=== PATIENT | female | born 1985 | race African-American/Black ===

== ENCOUNTER 2017-04-11 10:46 | Emergency (ER) | payer MEDICAID ==
[~2017-04-11] VITALS: Ht 162.6 cm; Wt 75.0 kg
[~2017-04-11 10:46] MED LIST: ALBUTEROL
[2017-04-11] MEDS ORDERED: MAGNESIUM/ALUMINUM HYDROXIDE/SIMETHICONE 30ML UDC PO STA (11:51)
[2017-04-11] MEDS ORDERED: ONDANSETRON 4MG ODT PO STA (11:51)
[2017-04-11] MEDS ORDERED: FAMOTIDINE 20MG TABLET PO ONE (12:00)
[2017-04-11 12:09] LABS: BASOPHILS % 0.2 % (0.0-2.0); EOSINOPHILS % 6.7 % (0.0-5.0); HEMATOCRIT. 37.5 % (36.0-48.0); HEMOGLOBIN. 12.8 g/dL (12.0-16.0); MEAN CORPUSCULAR HEMOGLOBIN 30.9 pg (28.0-32.0); MEAN CORPUSCULAR VOLUME 90.7 fL (81.0-99.0); MEAN PLATELET VOLUME 8.8 fl (7.4-10.4); MONOCYTES % 6.3 % (2.0-8.0); NEUTROPHILS % 38.8 % (40.0-76.0); PLATELET 216 x1000/uL (130-400); RED BLOOD CELL COUNT 4.13 mill/uL (4.2-5.4); RED CELL DISTRIBUTION WIDTH 13.9 % (11.6-14.6)
[2017-04-11 12:14] LABS: GLUCOSE URINE NEGATIVE (NEGATIVE); KETONES URINE TRACE (NEGATIVE); LEUKOCYTE ESTERASE URINE NEGATIVE (NEGATIVE); NITRITE URINE NEGATIVE (NEGATIVE); OCCULT BLOOD URINE TRACE (NEGATIVE); PH URINE 5.5 (4.5-8.0); PROTEIN URINE NEGATIVE (NEGATIVE); SPECIFIC GRAVITY URINE 1.031 (1.005-1.030); UROBILINOGEN URINE 0.2 E.U./dL (0.2-1.0)
[2017-04-11 12:15] LABS: CLARITY URINE CLEAR (CLEAR); COLOR URINE YELLOW (YELLOW)
[2017-04-11 12:23] LABS: CARBON DIOXIDE 27 mEq/L (21-32); CHLORIDE 105 mEq/L (98-107)
[2017-04-11 13:01] VITALS: BP 102/65
== END 2017-04-11 13:04 | disposition home or self-care (01) ==
LOC: ER 12:15
DX: K29.70 Gastritis, unspecified, without bleeding (principal); J45.909 Unspecified asthma, uncomplicated; Z88.6 Allergy status to analgesic agent; Z88.4 Allergy status to anesthetic agent; Z91.013 Allergy to seafood
CPT/HCPCS: 36415; 80053; 81001; 81025; 83690; 85025; 99284; Q0162

== ENCOUNTER 2017-12-07 18:57 | Emergency (ER) | payer MEDICAID ==
[~2017-12-07] VITALS: Ht 162.6 cm; Wt 76.0 kg
[2017-12-07 22:02] VITALS: BP 111/65
== END 2017-12-07 22:03 | disposition home or self-care (01) ==
LOC: ER 18:57
DX: J02.9 Acute pharyngitis, unspecified (principal)
CPT/HCPCS: 71045; 81025; 87070; 87430; 99285

== ENCOUNTER 2018-01-24 12:55 | Emergency (ER) | payer MEDICAID ==
[~2018-01-24] VITALS: Ht 157.5 cm; Wt 73.0 kg
[2018-01-24 16:17] LABS: CLARITY URINE CLEAR (CLEAR); COLOR URINE YELLOW (YELLOW); KETONES URINE NEGATIVE (NEGATIVE); LEUKOCYTE ESTERASE URINE NEGATIVE (NEGATIVE); NITRITE URINE NEGATIVE (NEGATIVE); OCCULT BLOOD URINE NEGATIVE (NEGATIVE); PROTEIN URINE NEGATIVE (NEGATIVE); SPECIFIC GRAVITY URINE 1.021 (1.005-1.030)
[2018-01-24] MEDS ORDERED: CEFTRIAXONE SODIUM 250 MG/VIAL IM ONE (19:00)
[2018-01-24] MEDS ORDERED: LIDOCAINE HCL 1% 20ML VIAL (Pyxis) INJ INFIL ONE (19:00)
[2018-01-24] MEDS ORDERED: AZITHROMYCIN 500 MG TABLET PO ONE (19:00)
[2018-01-24] MEDS ORDERED: LIDOCAINE HCL/PF 1% 10 MG/ML 5ML VIAL IJ ONE (19:45)
[2018-01-24] MEDS ORDERED: IBUPROFEN 600MG TABLET PO ONE (21:30)
[2018-01-24 22:02] VITALS: BP 115/78
== END 2018-01-24 22:04 | disposition home or self-care (01) ==
LOC: ER 15:03
DX: N76.0 Acute vaginitis (principal); B96.89 Other specified bacterial agents as the cause of diseases classified elsewhere; J45.909 Unspecified asthma, uncomplicated; Z88.6 Allergy status to analgesic agent; Z91.013 Allergy to seafood
CPT/HCPCS: 81003; 81025; 87210; 96372; 99284; J0696; J3490; Z7610

== ENCOUNTER 2018-02-17 23:08 | Emergency (ER) | payer MEDICAID ==
[~2018-02-17] VITALS: Ht 165.1 cm; Wt 61.0 kg
[2018-02-17 23:13] VITALS: BP 121/77
== END 2018-02-18 01:20 | disposition left against medical advice (07) ==
LOC: ER 23:08
DX: R07.89 Other chest pain (principal); R06.02 Shortness of breath; Z53.21 Procedure and treatment not carried out due to patient leaving prior to being seen by health care provider

== ENCOUNTER 2020-02-02 13:07 | Emergency (ER) | payer MEDICAID ==
[~2020-02-02] VITALS: Ht 162.6 cm; Wt 73.0 kg
[2020-02-02] MEDS ORDERED: KETOROLAC 30MG/ML VIAL IV STA (17:12)
[2020-02-02] MEDS ORDERED: ONDANSETRON HCL 4MG/2ML INJ IV STA (17:12)
[2020-02-02] MEDS ORDERED: SODIUM CHLORIDE 0.9% 1,000 ML IV ONE (17:12)
[2020-02-02 17:33] LABS: EOSINOPHILS % 1.6 % (0.0-5.0); HEMATOCRIT. 35.9 % (36.0-48.0); LYMPHOCYTES % 37.3 % (20.0-50.0); MEAN CORPUSCULAR HEMOGLOBIN 30.5 pg (28.0-32.0); MEAN CORPUSCULAR VOLUME 91.3 fL (81.0-99.0); MEAN PLATELET VOLUME 8.8 fl (7.4-10.4); MONOCYTES % 4.7 % (2.0-8.0); NEUTROPHILS % 55.4 % (40.0-76.0); PLATELET 279 x1000/uL (130-400); RED BLOOD CELL COUNT 3.94 mill/uL (4.2-5.4); RED CELL DISTRIBUTION WIDTH 13.5 % (11.6-14.6)
[2020-02-02 17:40] LABS: CHLORIDE 107 mEq/L (98-107)
[2020-02-02 17:41] LABS: HCG SCREEN NEGATIVE
[2020-02-02 18:27] LABS: COLOR URINE YELLOW (YELLOW); KETONES URINE NEGATIVE (NEGATIVE); LEUKOCYTE ESTERASE URINE NEGATIVE (NEGATIVE); NITRITE URINE NEGATIVE (NEGATIVE); OCCULT BLOOD URINE NEGATIVE (NEGATIVE); PH URINE 6.5 (4.5-8.0); PROTEIN URINE NEGATIVE (NEGATIVE); SPECIFIC GRAVITY URINE 1.029 (1.005-1.030)
[2020-02-02 18:30] LABS: CLARITY URINE CLEAR (CLEAR)
[2020-02-02 19:43] VITALS: BP 127/70
== END 2020-02-02 20:47 | disposition home or self-care (01) ==
LOC: ER 13:07
DX: R10.30 Lower abdominal pain, unspecified (principal); R11.2 Nausea with vomiting, unspecified; J45.909 Unspecified asthma, uncomplicated; Z91.013 Allergy to seafood; Z88.6 Allergy status to analgesic agent; Z88.8 Allergy status to other drugs, medicaments and biological substances; Z85.43 Personal history of malignant neoplasm of ovary
CPT/HCPCS: 36415; 76770; 76830; 76856; 80053; 81003; 81025; 84703; 85025; 93005; 96361; 96374; 96375; 99285; J1885; J2405; J7030

== ENCOUNTER 2020-02-21 01:02 | Emergency (ER) | payer MEDICAID ==
[~2020-02-21] VITALS: Ht 162.6 cm; Wt 70.0 kg
[2020-02-21] MEDS ORDERED: KETOROLAC 60MG/2ML VIAL IM STA (02:19)
[2020-02-21] MEDS ORDERED: AZITHROMYCIN 500 MG TABLET PO ONE (02:30)
[2020-02-21] MEDS ORDERED: CEFTRIAXONE SODIUM 250 MG/VIAL IM ONE (02:30)
[2020-02-21 02:57] LABS: CLARITY URINE CLOUDY (CLEAR); COLOR URINE YELLOW (YELLOW); KETONES URINE 4+ (NEGATIVE); LEUKOCYTE ESTERASE URINE 2+ (NEGATIVE); NITRITE URINE NEGATIVE (NEGATIVE); OCCULT BLOOD URINE 3+ (NEGATIVE); PH URINE 5.5 (4.5-8.0); PROTEIN URINE 1+ (NEGATIVE); SPECIFIC GRAVITY URINE 1.034 (1.005-1.030); UROBILINOGEN URINE 0.2 E.U./dL (0.2-1.0)
[2020-02-21 03:01] LABS: CHLORIDE 106 mEq/L (98-107)
[2020-02-21 03:06] LABS: BASOPHILS % 0.9 % (0.0-2.0); EOSINOPHILS % 0.2 % (0.0-5.0); HEMATOCRIT. 36.7 % (36.0-48.0); HEMOGLOBIN. 12.3 g/dL (12.0-16.0); LYMPHOCYTES % 23.1 % (20.0-50.0); MEAN CORPUSCULAR HEMOGLOBIN 30.3 pg (28.0-32.0); MEAN CORPUSCULAR VOLUME 90.8 fL (81.0-99.0); MEAN PLATELET VOLUME 8.8 fl (7.4-10.4); MONOCYTES % 4.9 % (2.0-8.0); NEUTROPHILS % 70.9 % (40.0-76.0); PLATELET 265 x1000/uL (130-400); RED BLOOD CELL COUNT 4.04 mill/uL (4.2-5.4); RED CELL DISTRIBUTION WIDTH 13.7 % (11.6-14.6)
[2020-02-21 04:45] VITALS: BP 114/72
== END 2020-02-21 05:13 | disposition home or self-care (01) ==
LOC: ER 01:02
DX: M54.5 Low back pain (principal); R10.9 Unspecified abdominal pain; J45.909 Unspecified asthma, uncomplicated; Z98.890 Other specified postprocedural states; Z91.013 Allergy to seafood
CPT/HCPCS: 36415; 72100; 74176; 80053; 81003; 81025; 83690; 85025; 86703; 87086; 87491; 87591; 93005; 96372; 99285; J0696; J1885

== ENCOUNTER 2021-03-21 19:32 | Emergency (ER) | payer BC, MEDICAID ==
[~2021-03-21] VITALS: Ht 162.6 cm; Wt 66.0 kg
[2021-03-21] MEDS ORDERED: SODIUM CHLORIDE 0.9% 1,000 ML IV ONE (20:30)
[2021-03-21 20:51] LABS: CLARITY URINE CLEAR (CLEAR); COLOR URINE YELLOW (YELLOW); KETONES URINE NEGATIVE (NEGATIVE); LEUKOCYTE ESTERASE URINE TRACE (NEGATIVE); NITRITE URINE NEGATIVE (NEGATIVE); OCCULT BLOOD URINE NEGATIVE (NEGATIVE); PROTEIN URINE NEGATIVE (NEGATIVE); SPECIFIC GRAVITY URINE 1.019 (1.005-1.030)
[2021-03-21 20:55] LABS: BASOPHILS % 0.4 % (0.0-2.0); EOSINOPHILS % 0.9 % (0.0-5.0); HEMATOCRIT. 35.2 % (36.0-48.0); HEMOGLOBIN. 11.9 g/dL (12.0-16.0); LYMPHOCYTES % 11.5 % (20.0-50.0); MEAN CORPUSCULAR HEMOGLOBIN 30.6 pg (28.0-32.0); MEAN CORPUSCULAR VOLUME 90.4 fL (81.0-99.0); MONOCYTES % 4.2 % (2.0-8.0); PLATELET 285 x1000/uL (130-400); RED CELL DISTRIBUTION WIDTH 14.4 % (11.6-14.6)
[2021-03-21] MEDS ORDERED: KETOROLAC 15MG/ML VIAL IV ONE (21:00)
[2021-03-21 21:01] LABS: CHLORIDE 104 mEq/L (98-107)
[2021-03-21 21:05] LABS: INR 0.9; PROTHROMBIN TIME 10.2 sec (9.6-11.0)
[2021-03-21] MEDS ORDERED: MORPHINE SULFATE 2 MG/ML CPJ (NOT FOR IM USE) IV NR (23:00)
[2021-03-22] MEDS ORDERED: CEFTRIAXONE SODIUM 500 MG/VIAL IM ONE (00:45)
[2021-03-22] MEDS ORDERED: LIDOCAINE HCL 1% 20ML VIAL (Pyxis) INJ INFIL ONE (00:45)
[2021-03-22] MEDS ORDERED: DOXYCYCLINE HYCLATE 100MG CAPSULE PO ONE (00:45)
[2021-03-22] MEDS ORDERED: IBUP-2029 MT (00:48)
[2021-03-22] MEDS ORDERED: DOXY100C5 MT (00:48)
[2021-03-22] MEDS ORDERED: ONDA4TAB5 MT (00:48)
[2021-03-22 02:00] VITALS: BP 125/81
== END 2021-03-22 02:16 | disposition home or self-care (01) ==
LOC: ER 19:32
DX: N70.91 Salpingitis, unspecified (principal); N39.0 Urinary tract infection, site not specified; K76.89 Other specified diseases of liver; N83.9 Noninflammatory disorder of ovary, fallopian tube and broad ligament, unspecified; J45.909 Unspecified asthma, uncomplicated; Z86.19 Personal history of other infectious and parasitic diseases; Z88.8 Allergy status to other drugs, medicaments and biological substances; Z91.013 Allergy to seafood
CPT/HCPCS: 36415; 76830; 76856; 80053; 81003; 81025; 83690; 85025; 85610; 87210; 87591; 96361; 96372; 96374; 96375; 99285; J0696; J1885; J2270; J3490; J7030

== ENCOUNTER 2024-09-02 20:13 | Emergency (ER) | payer SELFPAY ==
[~2024-09-02] VITALS: Ht 167.6 cm; Wt 62.6 kg
[~2024-09-02 20:13] MED LIST changes: +DOXY100C5 MT; +IBUP-2029 MT; +ONDA4TAB5 MT
[2024-09-02 20:18] VITALS: TEMP 36.9; O2SAT 99
[2024-09-02 21:36] LABS: HEMATOCRIT 34.5 % (36.0-48.0); HEMOGLOBIN 11.1 g/dL (12.0-16.0); MEAN CORPUSCULAR HEMOGLOBIN 29.6 pg (28.0-32.0); MEAN CORPUSCULAR HGB CONC 32.1 g/dL (31.0-37.0); MEAN CORPUSCULAR VOLUME 92.2 fL (81.0-99.0); PLATELET 301 x1000/uL (130-400); RED BLOOD CELL COUNT 3.74 mill/uL (4.2-5.4); RED CELL DISTRIBUTION WIDTH 14.4 % (11.6-14.6); WHITE BLOOD COUNT 6.2 x1000/uL (4.5-11.0)
[2024-09-02 21:46] LABS: CHLORIDE 104 mEq/L (98-107); POTASSIUM 3.6 mEq/L (3.5-5.1); SODIUM 140 mEq/L (136-145)
[2024-09-02 21:47] LABS: CARBON DIOXIDE 27 mEq/L (21-32)
[2024-09-02 21:52] LABS: CREATININE 0.7 mg/dL (0.6-1.0); GLUCOSE 97 mg/dL (70-105); UREA NITROGEN BLOOD 9 mg/dL (9-23)
[2024-09-02 22:41] LABS: CLARITY URINE CLOUDY (CLEAR); COLOR URINE YELLOW (YELLOW); GLUCOSE URINE NEGATIVE (NEGATIVE); KETONES URINE NEGATIVE (NEGATIVE); LEUKOCYTE ESTERASE URINE NEGATIVE (NEGATIVE); NITRITE URINE NEGATIVE (NEGATIVE); OCCULT BLOOD URINE 1+ (NEGATIVE); PROTEIN URINE NEGATIVE (NEGATIVE); SPECIFIC GRAVITY URINE 1.024 (1.005-1.030)
[2024-09-02] MEDS: ONDANSETRON 4MG ODT PO NR (22:44)
[2024-09-02] MEDS: KETOROLAC 30MG/ML VIAL IM NR (22:44)
[2024-09-02 22:48] LABS: ALANINE AMINOTRANSFERASE 27 IU/L (10-49); ALBUMIN 3.9 g/dL (3.2-4.8); ASPARTATE AMINOTRANSFERASE 19 IU/L (<34); BILIRUBIN DIRECT 0.1 mg/dL (<=3.0); BILIRUBIN TOTAL 0.4 mg/dL (0.1-1.0); PROTEIN TOTAL 6.7 g/dL (6.0-8.3)
[2024-09-02 22:57] LABS: BACTERIA URINE TRACE; SQUAMOUS EPITHELIAL CELL URINE 1+ /lpf (RARE/1+); WBC URINE 0-2 /hpf (0-2)
[2024-09-03 00:07] LABS: HCG SCREEN NEGATIVE
[2024-09-03] MEDS ORDERED: TOPUD MT (00:19)
[2024-09-03 00:32] VITALS: BP 154/98; PULSE 72; RESP 18; O2SAT 100
== END 2024-09-03 00:29 | disposition home or self-care (01) ==
LOC: ER 20:13
DX: R07.89 Other chest pain (principal); J45.909 Unspecified asthma, uncomplicated; Z79.899 Other long term (current) drug therapy; Z98.890 Other specified postprocedural states; Z88.8 Allergy status to other drugs, medicaments and biological substances; Z91.018 Allergy to other foods
CPT/HCPCS: 99285; 71045; 80076; 80048; 81003; 84703; 83690; 85027; 36415; 93005; 96372; J1885; Q0162

== ENCOUNTER 2024-10-05 07:18 | Emergency (ER) | payer SELFPAY ==
[~2024-10-05] VITALS: Ht 162.6 cm; Wt 68.0 kg
[~2024-10-05 07:18] MED LIST changes: +TOPUD MT
[2024-10-05 07:25] VITALS: BP 118/74; TEMP 36.7; O2SAT 100
[2024-10-05 08:23] VITALS: PULSE 79; RESP 16; O2SAT 99
[2024-10-05] MEDS: IPRATROPIUM BROMIDE (0.02%) 0.5MG/2.5ML NEB HHN STA (08:23)
[2024-10-05] MEDS: ALBUTEROL (0.083%) 2.5MG/3ML NEB HHN STA (08:23)
[2024-10-05] MEDS: PREDNISONE 20MG TABLET PO STA (08:47)
[2024-10-05] MEDS ORDERED: PRED10TA23 MT (10:41)
[2024-10-05] MEDS ORDERED: ALBU90AE INH (10:41)
== END 2024-10-05 10:50 | disposition home or self-care (01) ==
LOC: ER 07:18
DX: J45.901 Unspecified asthma with (acute) exacerbation (principal); R05.9 Cough, unspecified; Z20.822 Contact with and (suspected) exposure to COVID-19; Z98.890 Other specified postprocedural states; Z79.899 Other long term (current) drug therapy
CPT/HCPCS: 81025; 71045; 94640; 93005; 94070; 99285; 87426; J7512; Z7610